=== PATIENT | female | born 1995 | race Caucasian/White ===

== ENCOUNTER 2021-03-22 13:39 | Observation (INO) | payer OTHER ==
[~2021-03-22] VITALS: Ht 162.6 cm; Wt 81.6 kg
[~2021-03-22 13:39] MED LIST: AMITRIPTYLINE H10 MG PO; ATENOLOL25 MG
[2021-03-22] MEDS ORDERED: Morphine 4mg Syringe 4 MG/ML INJ IV PRN ×2 (14:00→15:45)
[2021-03-22] MEDS ORDERED: SODIUM CHLORIDE 0.9% 50ML 50 ML ONE (14:16)
[2021-03-22] MEDS ORDERED: IOPAMIDOL 370 MG/ML 200 ML INFUS..BTL INJ ONE (14:16)
[2021-03-22 14:52] LABS: BASOPHILS # (AUTO) 0.1 (0.0-0.1); BASOPHILS % 0.7 % (0.0-1.0); EOSINOPHILS # (AUTO) 0.2 (0.0-0.4); EOSINOPHILS % 2.8 % (0.0-6.0); HEMATOCRIT 37.4 % (34.2-44.1); HEMOGLOBIN 11.9 g/dL (12.0-16.0); LYMPHOCYTES # (AUTO) 1.7 (1.0-3.2); MEAN CORPUSCULAR HEMOGLOBIN 29.1 pg (28-32); MEAN CORPUSCULAR HGB CONC 31.8 g/dL (31-35); MEAN CORPUSCULAR VOLUME 91.4 fL (81-99); MONOCYTES # (AUTO) 0.7 (0.2-0.8); MONOCYTES % 8.5 % (4.4-11.3); NEUTROPHILS % 65.6 % (38.7-80.0); PLATELET COUNT 271 x10e3/uL (140-360); RED BLOOD COUNT 4.09 x10e6/uL (3.6-5.1); RED CELL DISTRIBUTION WIDTH 12.7 % (11.7-14.4)
[2021-03-22 15:07] LABS: ALBUMIN 3.8 g/dL (3.5-5.0); ALBUMIN/GLOBULIN RATIO 1.3 (0.8-2.0); ANION GAP 9.8 mmol/L (8-16); CALCIUM 8.7 mg/dL (8.4-10.2); CREATININE, SERUM 0.72 mg/dL (0.57-1.11); POTASSIUM 3.8 mmol/L (3.5-5.1)
[2021-03-22] MEDS ORDERED: ONDANSETRON HCL INJ 2MG/ML 2ML 2 MG/ML VIAL IV PRN ×2 (15:45)
[2021-03-22] MEDS ORDERED: SODIUM CHLORIDE FLUSH 10 ML SYR INJ PRN (15:45)
[2021-03-22] MEDS ORDERED: DOCUSATE SODIUM 100 MG CAP PO PRN (15:45)
[2021-03-22 16:09] LABS: CHOL/HDL RATIO 4.7 (3.0-3.6)
[2021-03-22] MEDS ORDERED: ATENOLOL 50 MG TAB PO SCH (17:00)
[2021-03-22 20:00] VITALS: BP 114/80
[2021-03-22] MEDS ORDERED: CYCLOBENZAPRINE10 MG PO (20:11)
[2021-03-22] MEDS ORDERED: RIZATRIPTAN10 M1 PO (20:11)
[2021-03-22] MEDS ORDERED: AIMOVIG AU140 MG/1 M IM (20:22)
[2021-03-22] MEDS ORDERED: RELPAX40 MG PO (20:23)
[2021-03-22 20:35] VITALS: BP 114/80
[2021-03-22] MEDS: ACETAMINOPHEN 325 MG TAB PO PRN (20:35)
[2021-03-23] VITALS: BP 112/56
[2021-03-23 04:00] VITALS: BP 90/62
[2021-03-23 07:57] VITALS: BP 102/67
[2021-03-23] MEDS ORDERED: ASPIRIN EC81 MG PO (08:01)
[2021-03-23 08:32] VITALS: BP 107/67
[2021-03-23] MEDS ORDERED: AMITRIPTYLINE HCL 10 MG TAB PO SCH (09:00)
[2021-03-23] MEDS ORDERED: ONDANSETRON HCL 4 MG ORAL DISINTEGRATING TAB PO PRN (09:00)
[2021-03-23] MEDS: ACETAMINOPHEN 325 MG TAB PO PRN (09:55)
== END 2021-03-23 10:46 | disposition home or self-care (01) ==
LOC: ER 13:42 → ERHOLD 15:36 → INTOOBSV 15:36 → MED/SURG 18:10
PROVIDERS: ADMIT Internal Medicine; ATTEND Internal Medicine
DX: G44.59 Other complicated headache syndrome (principal); R27.0 Ataxia, unspecified; E66.9 Obesity, unspecified; Z68.30 Body mass index [BMI] 30.0-30.9, adult; I10 Essential (primary) hypertension; Z20.822 Contact with and (suspected) exposure to COVID-19
CPT/HCPCS: 36415; 70450; 70496; 70498; 70551; 80053; 80061; 83036; 84702; 85025; 94799; 99284; G0378; J2270; Q9967; U0002